=== PATIENT | male | born 2000 | race Two or more races ===

== ENCOUNTER 2021-01-27 19:24 | Emergency (ER) | payer MEDICAID, OTHER ==
[~2021-01-27] VITALS: Ht 175.3 cm; Wt 90.7 kg
[2021-01-27 19:52] VITALS: BP 115/67
[2021-01-27] MEDS ORDERED: TETRACAINE HCL 0.5% OPTH(EYE) SOLN 4ML EACHEYE ONE (20:00)
[2021-01-27] MEDS ORDERED: FLUORESCEIN SOD OPTH TEST STRIP EACHEYE ONE ×2 (20:00→23:00)
== END 2021-01-28 00:45 | disposition home or self-care (01) ==
LOC: ER 19:26
DX: T15.91XA Foreign body on external eye, part unspecified, right eye, initial encounter (principal); T15.92XA Foreign body on external eye, part unspecified, left eye, initial encounter; X58.XXXA Exposure to other specified factors, initial encounter; Y93.89 Activity, other specified; Y92.89 Other specified places as the place of occurrence of the external cause; Y99.8 Other external cause status

== ENCOUNTER 2021-04-19 01:40 | Emergency (ER) | payer MEDICAID ==
[~2021-04-19] VITALS: Ht 180.3 cm; Wt 86.2 kg
[2021-04-19 01:52] VITALS: BP 116/65
== END 2021-04-19 02:26 | disposition left against medical advice (07) ==
LOC: ER 01:41
DX: J02.9 Acute pharyngitis, unspecified (principal); Z53.21 Procedure and treatment not carried out due to patient leaving prior to being seen by health care provider
CPT/HCPCS: 87070; 87880